=== PATIENT | male | born 1970 | race American Indian/Alaskan Native ===

== ENCOUNTER 2019-08-11 16:14 | Emergency (ER) | payer SELFPAY ==
[2019-08-11 18:39] VITALS: BP 198/113
--- NOTE | 2019-08-11 18:46 | Event Note ---
ED Screening Note ED Screening Note: The patient was seen in triage for HTN and syncope today also anxiety x 2 weeks. insomnia Labs/imaging ordered to evaluate for a cause of this complaint. Vital signs reviewed, patient awake and alert in NAD. This initial assessment/diagnostic orders/clinical plan/treatment(s) is/are subject to change based on patients health status, clinical progression and re- assessment by fellow clinical providers in the ED. Further treatment and workup at subsequent clinical providers discretion. Patient/guardian urged not to elope from the ED as their condition may be serious if not clinically assessed and managed. Initial orders include:
[2019-08-11 19:20] LABS: Basophils # (Auto) 0.1 K/mm3 (0.0-0.1); Basophils % (Auto) 0.9 % (0.0-1.8); Eosinophils # (Auto) 0.1 K/mm3 (0.0-0.4); Eosinophils % (Auto) 1.1 % (0.0-4.3); Hemoglobin 10.1 gm/dl (11.8-15.2); Lymphocytes # (Auto) 2.5 K/mm3 (1.2-5.4); Lymphocytes % (Auto) 30.3 % (13.4-35.0); Mean Corpuscular HGB Conc 33 % (32-34); Mean Corpuscular Volume 94 fl (84-94); Monocytes # (Auto) 0.7 K/mm3 (0.0-0.8); Monocytes % (Auto) 8.1 % (0.0-7.3); Platelet Count 272 K/mm3 (140-440); Red Blood Count 3.29 M/mm3 (3.65-5.03)
[2019-08-11 19:32] LABS: Calcium 9.9 mg/dL (8.4-10.2)
--- NOTE | 2019-08-11 20:35 | Cat Scan Report ---
. CT head/brain wo con INDICATION / CLINICAL INFORMATION: 48 years Male; headache. TECHNIQUE: Routine CT head without contrast. All CT scans at this location are performed using CT dos e reduction for ALARA by means of automated exposure control. COMPARISON: None. FINDINGS: BRAIN / INTRACRANIAL CONTENTS: There is mild cerebral white matter disease most consistent with micro vascular angiopathy. The findings include the right internal and left external capsules as well as th e periventricular regions. The ventricular system is appropriate in size and configuration. There is no clear CT evidence of acute intracranial hemorrhage or significant mass effect. ORBITS: No significant abnormality of visualized orbits. SINUSES / MASTOIDS: There are right sinonasal a post surgical changes. However, there is near complet e opacification of the right maxillary sinus at. There is mild opacification along the posterior left maxillary sinus. CRANIOCERVICAL JUNCTION: No significant abnormality. ADDITIONAL FINDINGS: None. IMPRESSION: 1. There is mild microvascular angiopathy as described without CT ends of acute intracranial hemorrha ge. 2. There is near complete opacification of the right maxillary sinus. Signer Name: Efraín Friedman MD Signed: 08/11/2019 8:30 PM Workstation Name: [id number]
== END 2019-08-11 19:00 | disposition left against medical advice (07) ==
LOC: ED 16:14
DX: R51 Headache (principal); Z53.21 Procedure and treatment not carried out due to patient leaving prior to being seen by health care provider
CPT/HCPCS: 36415; 70450; 80048; 85025

== ENCOUNTER 2019-08-11 23:35 | Emergency (ER) | payer SELFPAY ==
[2019-08-11 23:49] VITALS: BP 199/111
== END 2019-08-12 02:35 | disposition left against medical advice (07) ==
LOC: ED 23:35
DX: R42 Dizziness and giddiness (principal); Z53.21 Procedure and treatment not carried out due to patient leaving prior to being seen by health care provider